=== PATIENT | male | born 1940 | race Caucasian/White ===

== ENCOUNTER → 2016-11-16 | Outpatient (CLI) | payer MEDICARE, OTHER | LOC: GMAL 12:08 | PROVIDERS: ATTEND Family Medicine | DX: D51.3 Other dietary vitamin B12 deficiency anemia (principal); E55.9 Vitamin D deficiency, unspecified; Z12.5 Encounter for screening for malignant neoplasm of prostate | CPT/HCPCS: 82306; 82607; G0103 ==

== ENCOUNTER → 2017-07-05 | Outpatient (CLI) | payer MEDICARE, OTHER ==
--- NOTE | 2017-07-08 15:51 | US ---
EXAM DESCRIPTION: Carotid Duplex CLINICAL HISTORY: 77 years, Male, CAROTID BRUIT COMPARISON: None. FINDINGS: RIGHT: No significant atherosclerotic plaque. The common carotid, proximal, mid and distal internal carotid and external carotid arteries are patent without elevated systolic velocities. Vertebral artery flow is antegrade. Carotid bulb stenosis is estimated at 30%. LEFT: No significant atherosclerotic plaque. The common carotid, proximal, mid and distal internal carotid and external carotid arteries are patent without elevated systolic velocities. Vertebral artery flow is antegrade. Carotid bulb stenosis is estimated at 24%. IMPRESSION: No hemodynamically significant stenosis. Antegrade flow in the vertebral arteries. Electronically signed by: Mark Beavers 07/08/2017 3:50 PM IN STORE REPRESENTATIVE
== END ==
LOC: US 09:10
PROVIDERS: ATTEND Family Medicine
DX: R09.89 Other specified symptoms and signs involving the circulatory and respiratory systems (principal)

== ENCOUNTER → 2017-11-23 | Outpatient (CLI) | payer MEDICARE, OTHER | LOC: GMAL 07:00 | PROVIDERS: ATTEND Family Medicine | DX: D51.3 Other dietary vitamin B12 deficiency anemia (principal); E55.9 Vitamin D deficiency, unspecified; R53.82 Chronic fatigue, unspecified; Z12.5 Encounter for screening for malignant neoplasm of prostate; Z79.899 Other long term (current) drug therapy | CPT/HCPCS: 36415; 80053; 80061; 82306; 82607; 84443; 85025; G0103 ==

== ENCOUNTER 2018-04-19 00:46 | Emergency (ER) | payer MEDICARE, OTHER ==
[2018-04-19] MEDS ORDERED: SODIUM CHLORIDE 0.9% (FLUSH) 10 ML SYG IV PRN (01:10)
[2018-04-19 01:22] VITALS: TEMP 97.8
--- NOTE | 2018-04-19 01:27 | ED.PDOC ---
History of Present Illness - General Chief Complaint: Cardiovascular Problem Stated Complaint: chest pain, irreg heart rate Time Seen by Provider: 04/19/18 01:10 Source: patient Exam Limitations: no limitations - History of Present Illness Initial Comments: Patient presents with chest pain for 6-7 hours. He says it is mid-sternal, non- radiating, fluttering, no associated symptoms, no exacerbating nor alleviating factors, no previous episodes. Patient is asymptomatic upon arrival to the E.D. He took a 325 mg ASA one hour before presentation. He does not smoke. No history of DM. No history of bipedal edema. Is not being treated for hyperlipidemia. His father had a heart attack and survived it. No other first degree relative with heart attacks. Denies HTN. No other complaints. Timing/Duration: 4-6 hours Severity: mild Improving Factors: nothing Worsening Factors: nothing Associated Symptoms: denies symptoms Allergies/Adverse Reactions: Allergies Penicillins Allergy (Verified 04/19/18 01:09) Review of Systems - Review of Systems Constitutional: States: no symptoms reported EENTM: States: no symptoms reported Respiratory: States: no symptoms reported Cardiology: States: see HPI Gastrointestinal/Abdominal: States: no symptoms reported Genitourinary: States: no symptoms reported Musculoskeletal: States: no symptoms reported Skin: States: no symptoms reported Neurological: States: no symptoms reported Endocrine: States: no symptoms reported Hematologic/Lymphatic: States: no symptoms reported Past Medical History (General) - Patient Medical History Hx Seizures: No Hx Stroke: No Hx Dementia: No Hx Asthma: No Hx of COPD: No Hx Cardiac Disorders: No Hx Congestive Heart Failure: No Hx Pacemaker: No Hx Hypertension: No Hx Thyroid Disease: No Hx Diabetes: No Hx Gastroesophageal Reflux: No Hx Renal Disease: No Hx of HIV: No Hx MRSA: No Surgical History: tonsillectomy - Vaccination History Hx Tetanus, Diphtheria Vaccination: No Hx Influenza Vaccination: Yes Hx Pneumococcal Vaccination: No - Social History Hx Tobacco Use: No Hx Alcohol Use: No Hx Substance Use: No Hx Substance Use Treatment: No Hx Depression: No - Triage Comment ED Triage Comment: Pt reports he started having some light pain about 5p. and at midnight he peng up with strong pressure in midchest. Pt stated his heart was irregualr. Normal rate is 60s, tonight it was in 80s. Denies any cardiac history, very active, is an athelete. Family Medical History - Family History Father Family History: Unknown Physical Exam - Physical Exam General Appearance: Alert Eye Exam: bilateral normal Ears, Nose, Throat: hearing grossly normal, normal ENT inspection, normal pharynx Neck: non-tender, full range of motion, supple Respiratory: chest non-tender, lungs clear, normal breath sounds, no respiratory distress Cardiovascular/Chest: normal peripheral pulses, regular rate, rhythm, no edema Gastrointestinal/Abdominal: normal bowel sounds, non tender, soft Back Exam: normal inspection, no CVA tenderness, no vertebral tenderness Extremity: normal range of motion, non-tender, normal inspection 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 Follow up EKG showed NSR with no premature contractions. Troponin negative. CXR negative. Patient instructed to follow up with his pcp for possible digital loop monitoring. Laboratory Tests 04/19/18 04/19/18 04/19/18 01:10 01:11 01:11 WBC 6.1 RBC 4.29 L Hgb 14.5 Hct 42.6 MCV 99.2 H MCH 33.7 H MCHC 34.2 RDW 12.9 Plt Count 151 MPV 9.7 Absolute Neuts (auto) 3.70 Absolute Lymphs (auto) 1.50 Absolute Monos (auto) 0.80 Absolute Eos (auto) 0.10 Absolute Basos (auto) 0.10 Neutrophils % 59.8 Lymphocytes % 24.5 Monocytes % 13.4 H Eosinophils % 1.2 Basophils % 1.1 PT 9.5 9.5 INR 0.95 0.95 PTT (SP) 23.6 23.6 Sodium 142 143 Potassium 4.5 4.7 Chloride 102 103 Carbon Dioxide 30 34 H Anion Gap 14.5 10.7 L BUN 10 10 Creatinine 0.76 0.87 BUN/Creatinine Ratio 13.2 11.5 Random Glucose 95 94 Serum Osmolality 282.0 283.8 Calcium 9.3 9.3 Magnesium 2.0 Total Bilirubin 0.4 AST 23 ALT 15 Alkaline Phosphatase 52 Creatine Kinase 98 CK-MB (CK-2) 2.2 CK-MB (CK-2) % Not Reportable Troponin I < 0.02 B-Natriuretic Peptide 29.5 Serum Total Protein 6.0 L Albumin 3.7 Globulin 2.3 Albumin/Globulin Ratio 1.6 Departure - Departure Clinical Impression: Chest pain Disposition: Discharge to Home or Self Care Condition: Good Departure Forms: ED Discharge - Pt. Copy, Patient Portal Self Enrollment Instructions: DI for Chest Pain Diet: resume usual diet Activity: increase activity as tolerated Referrals: Ronan Henderson III, MD [Primary Care Provider] - 1-2 Weeks Additional Instructions: See your regular doctor about the possibility of getting digital loop monitoring or stress testing. Return to the E.R. if chest pain occurs again for for new or worsening symptoms. Critical Care Note - Critical Care Note Total Time (mins): 80
--- NOTE | 2018-04-19 02:28 | RAD ---
EXAM DESCRIPTION: Chest,1 View CLINICAL HISTORY:78 years Male, chest pain Comparison: None FINDINGS: No focal lung consolidation. No pleural effusion. No pneumothorax. Cardiac and mediastinal silhouette is unremarkable. No acute osseous abnormality. Soft tissues are unremarkable. IMPRESSION: No acute findings. No focal lung consolidation. Electronically signed by: Lenny Almaguer DO 04/19/2018 2:26 AM CDT
[2018-04-19 02:47] VITALS: O2SAT 94
[2018-04-19 02:48] VITALS: BP 109/66
== END 2018-04-19 02:48 | disposition home or self-care (01) ==
LOC: ER 00:46
DX: R07.9 Chest pain, unspecified (principal); I49.1 Atrial premature depolarization; Z88.0 Allergy status to penicillin

== ENCOUNTER → 2018-06-12 | Outpatient (CLI) | payer MEDICARE, OTHER | LOC: LAB.O 07:03 | PROVIDERS: ATTEND Family Medicine | DX: Z20.820 Contact with and (suspected) exposure to varicella (principal); I10 Essential (primary) hypertension ==

== ENCOUNTER → 2019-02-17 | Outpatient (CLI) | payer MEDICARE, OTHER | LOC: GMAL 06:55 | PROVIDERS: ATTEND Family Medicine | DX: Z79.899 Other long term (current) drug therapy (principal); Z12.5 Encounter for screening for malignant neoplasm of prostate ==

== ENCOUNTER → 2019-10-22 | Outpatient (CLI) | payer MEDICARE, OTHER | CPT/HCPCS: 36415; 80048; 80061; 80076; 82306; 82607; 84443; 85025; G0103 ==